=== PATIENT | male | born 1950 | race Caucasian/White ===

== ENCOUNTER 2017-03-07 13:04 | Emergency (ER) | payer MEDICARE, OTHER ==
[~2017-03-07] VITALS: Ht 167.6 cm; Wt 138.2 kg
[~2017-03-07 13:04] MED LIST: B-121000 MCG PO; FLOMAX 0.40.4 MG/CAP PO; FOLIC ACID 40400 MCG PO; GLUCOPHAGE500 MG/TAB PO; KLONOPIN 1MG1 MG PO; LASIX 20MG TABL20 MG PO; MULTI VITAMINS1 TAB PO; NEURONTIN300 MG/CAP PO; NORCO 325 MG-7.1 TAB; PRINZIDE 12.5 M1 TA1 PO; ROXICODONE 55 MG/TAB; STOOL SOFTENER100 M2 PO; VITAMINC1000TA PO; ZOCOR 40MG40 MG PO; ZYLOPRIM 100MG100 MG PO
[2017-03-07 13:11] VITALS: BP 144/73; PULSE 75; TEMP 98.6
[2017-03-07 13:46] LABS: BASO % 0.4 % (0.0-2.0); EOS # 0.2 (0.0-0.7); EOS % 2.6 % (0-4.0); GRAN # 4.9 (1.4-6.5); GRAN % 68.1 % (42.2-75.2); LYMPH # 1.4 (1.2-3.4); LYMPH % 19.8 % (20.0-51.0); MEAN CELL VOLUME 103 fl (80.0-100.0); MEAN CORPUSCULAR HGB CONC 33 g/dl (33.0-37.0); MEAN PLATELET VOLUME 8.6 fl (7.4-10.4); MONO # 0.6 (0.1-0.6); MONO % 7.7 % (1.7-9.3); PLATELET COUNT 311 K/mm3 (130-400); RED BLOOD COUNT 2.35 M/mm3 (4.20-5.60); REDCELL DISTRIBUTION WIDTH-CV 13.2 % (11.5-14.5); WHITE BLOOD COUNT 7.2 K/mm3 (4.8-10.8)
[2017-03-07 13:49] LABS: HEMATOCRIT 24.3 % (42.0-52.0); MEAN CORPUSCULAR HEMOGLOBIN 34 pg (27.0-31.0)
[2017-03-07 14:05] LABS: CALCIUM 9.1 mg/dL (8.4-10.2); CREATININE, serum 1.5 mg/dL (0.66-1.25); POTASSIUM 4.6 mmol/L (3.4-5.0)
== END 2017-03-07 15:15 | disposition home or self-care (01) ==
LOC: COL.ER 13:04
PROVIDERS: Emergency Medicine
DX: M96.842 Postprocedural seroma of a musculoskeletal structure following a musculoskeletal system procedure (principal); G89.18 Other acute postprocedural pain; D64.9 Anemia, unspecified; R60.0 Localized edema; E11.9 Type 2 diabetes mellitus without complications; Z79.84 Long term (current) use of oral hypoglycemic drugs

== ENCOUNTER 2017-03-12 12:14 | Day surgery (SDC) | payer MEDICARE, OTHER ==
[2017-03-12] VITALS (10 sets, daily range): BP systolic 100–126; BP diastolic 50–580; PULSE 72–95; TEMP 97.3–98.7
[~2017-03-12] VITALS: Ht 170.2 cm; Wt 136.3 kg
[2017-03-12] MEDS ORDERED: ULTRAM 50MG TAB50 MG PO (13:08)
[2017-03-13 01:45] VITALS: BP 106/58; PULSE 81; TEMP 98.6
[2017-03-13 05:39] VITALS: BP 120/50; PULSE 81; TEMP 98.5
[2017-03-13] MEDS ORDERED: CEPHALEXIN500 M1 PO (09:17)
[2017-03-13] MEDS ORDERED: NORCO 325 MG-7.1 TAB PO (09:17)
[2017-03-13 10:03] VITALS: BP 94/58; PULSE 93; TEMP 98.3
[2017-03-13 13:19] VITALS: BP 128/59; PULSE 92; TEMP 98.3
== END 2017-03-13 15:30 | disposition home or self-care (01) ==
LOC: SDCO 12:14 → SURG 17:20 → SDCO 03-13 15:30
DX: M96.840 Postprocedural hematoma of a musculoskeletal structure following a musculoskeletal system procedure (principal); E11.22 Type 2 diabetes mellitus with diabetic chronic kidney disease; E11.40 Type 2 diabetes mellitus with diabetic neuropathy, unspecified; N18.9 Chronic kidney disease, unspecified; I12.9 Hypertensive chronic kidney disease with stage 1 through stage 4 chronic kidney disease, or unspecified chronic kidney disease; M10.9 Gout, unspecified; M48.00 Spinal stenosis, site unspecified; M19.90 Unspecified osteoarthritis, unspecified site; Z96.612 Presence of left artificial shoulder joint; Z96.611 Presence of right artificial shoulder joint; Z96.652 Presence of left artificial knee joint; G47.33 Obstructive sleep apnea (adult) (pediatric); N40.0 Benign prostatic hyperplasia without lower urinary tract symptoms; Z68.42 Body mass index [BMI] 45.0-49.9, adult; Z80.9 Family history of malignant neoplasm, unspecified; Z82.49 Family history of ischemic heart disease and other diseases of the circulatory system; R20.9 Unspecified disturbances of skin sensation; D64.9 Anemia, unspecified; R60.0 Localized edema
CPT/HCPCS: OP; J0690; J1170; J1650; J2405; J2704; J2765; J3010; J7030

== ENCOUNTER 2017-08-25 13:02 | Observation (INO) | payer MEDICARE, OTHER ==
[~2017-08-25] VITALS: Ht 167.6 cm; Wt 142.7 kg
[~2017-08-25 13:02] MED LIST changes: +CEPHALEXIN500 M1 PO; +NORCO 325 MG-7.1 TAB PO; +ULTRAM 50MG TAB50 MG PO
[2017-08-25 16:50] LABS: BASO % 0.2 % (0.0-2.0); EOS % 0.1 % (0-4.0); GRAN # 10.7 (1.4-6.5); GRAN % 81.6 % (42.2-75.2); HEMATOCRIT 37.2 % (42.0-52.0); HEMOGLOBIN 12.7 g/dl (13.5-18.0); LYMPH # 1.4 (1.2-3.4); LYMPH % 10.6 % (20.0-51.0); MEAN CELL VOLUME 101 fl (80.0-100.0); MEAN CORPUSCULAR HEMOGLOBIN 34 pg (27.0-31.0); MEAN CORPUSCULAR HGB CONC 34 g/dl (33.0-37.0); MEAN PLATELET VOLUME 9.1 fl (7.4-10.4); MONO # 0.9 (0.1-0.6); MONO % 7.1 % (1.7-9.3); PLATELET COUNT 245 K/mm3 (130-400); RED BLOOD COUNT 3.69 M/mm3 (4.20-5.60); REDCELL DISTRIBUTION WIDTH-CV 13.1 % (11.5-14.5)
[2017-08-25 16:59] LABS: ALBUMIN 4.1 gm/dL (3.5-5.0); BILIRUBIN,TOTAL 1.3 mg/dL (0.0-1.0); CALCIUM 9.7 mg/dL (8.4-10.2); CREATININE, serum 1.48 mg/dL (0.66-1.25); POTASSIUM 4.3 mmol/L (3.4-5.0); TOTAL PROTEIN 7.2 gm/dL (6.4-8.2)
[2017-08-25 17:03] LABS: COLLECTION METHOD CLEAN CATCH
[2017-08-25 17:09] LABS: MUCOUS Present /lpf; PH 5 (5-8); SQUAMOUS EPITHELIAL None Seen /hpf; URINE APPEARANCE Clear; URINE BACTERIA Rare /hpf; URINE BILIRUBIN Negative (NEGATIVE); URINE BLOOD 3+ (NEGATIVE); URINE COLOR Yellow; URINE GLUCOSE Negative (NEGATIVE); URINE KETONE Negative (NEGATIVE); URINE LEUKOCYTE ESTERASE Negative (NEGATIVE); URINE NITRATE Negative (NEGATIVE); URINE PROTEIN(semi-quant) 2+ (NEGATIVE); URINE UROBILINOGEN Negative (NEGATIVE)
[2017-08-25 18:38] LABS: INFLUENZA A NEGATIVE; INFLUENZA B NEGATIVE
[2017-08-25 20:54] LABS: ALBUMIN 3.5 gm/dL (3.5-5.0); BILIRUBIN,TOTAL 0.9 mg/dL (0.0-1.0); CREATININE, serum 1.33 mg/dL (0.66-1.25); POTASSIUM 3.9 mmol/L (3.4-5.0); TOTAL PROTEIN 6.4 gm/dL (6.4-8.2)
[2017-08-25 21:07] VITALS: BP 155/69; PULSE 102; TEMP 98.5
[2017-08-25] MEDS ORDERED: XARELTO10 MG PO (23:15)
[2017-08-26 02:07] VITALS: BP 148/71; PULSE 104; TEMP 98.5
[2017-08-26 06:03] VITALS: BP 137/71; PULSE 87; TEMP 98.2
[2017-08-26 07:43] LABS: BASO # 0.1 (0.0-0.2); BASO % 0.5 % (0.0-2.0); EOS # 0.1 (0.0-0.7); EOS % 1.1 % (0-4.0); GRAN # 6.9 (1.4-6.5); GRAN % 74.2 % (42.2-75.2); LYMPH # 1.4 (1.2-3.4); LYMPH % 15.4 % (20.0-51.0); MEAN CELL VOLUME 103 fl (80.0-100.0); MEAN CORPUSCULAR HGB CONC 33 g/dl (33.0-37.0); MEAN PLATELET VOLUME 9.5 fl (7.4-10.4); MONO # 0.8 (0.1-0.6); MONO % 8.6 % (1.7-9.3); PLATELET COUNT 228 K/mm3 (130-400); RED BLOOD COUNT 3.13 M/mm3 (4.20-5.60); REDCELL DISTRIBUTION WIDTH-CV 13.3 % (11.5-14.5)
[2017-08-26 07:47] LABS: HEMATOCRIT 32.3 % (42.0-52.0); HEMOGLOBIN 10.6 g/dl (13.5-18.0); MEAN CORPUSCULAR HEMOGLOBIN 34 pg (27.0-31.0)
[2017-08-26 09:43] VITALS: BP 145/83; PULSE 72; TEMP 97.9
[2017-08-26] MEDS ORDERED: LEVOXYL0.05 MG PO (12:05)
[2017-08-26 13:38] VITALS: BP 145/65; PULSE 82; TEMP 98.1
[2017-08-26 17:56] VITALS: BP 152/77; PULSE 94; TEMP 100
[2017-08-26] MEDS ORDERED: MULTI VITAMINS1 TAB PO (19:23)
[2017-08-26] MEDS ORDERED: ROXICODONE 55 MG/TAB PO (19:25)
[2017-08-26] MEDS ORDERED: NOVOLOG 100U100 U/M1 SQ (19:31)
== END 2017-08-26 18:20 ==
LOC: COL.ER 13:02 → SURG 18:00
PROVIDERS: Family Medicine; Internal Medicine
DX: R53.1 Weakness (principal); R39.198 Other difficulties with micturition; I10 Essential (primary) hypertension; E03.9 Hypothyroidism, unspecified; D53.9 Nutritional anemia, unspecified; E11.9 Type 2 diabetes mellitus without complications; E78.5 Hyperlipidemia, unspecified; E86.0 Dehydration; N30.90 Cystitis, unspecified without hematuria; Z96.651 Presence of right artificial knee joint; Z79.4 Long term (current) use of insulin; Z79.01 Long term (current) use of anticoagulants; Z82.49 Family history of ischemic heart disease and other diseases of the circulatory system; Z82.61 Family history of arthritis
CPT/HCPCS: G0378; G8978-GP; G8979-GP; G8987-GO; G8988-GO; J0696; J1650; J1815; J2270; J7030

== ENCOUNTER 2017-08-26 16:19 | Inpatient (IN) | payer MEDICARE, OTHER ==
[~2017-08-26] VITALS: Ht 165.1 cm; Wt 132.7 kg
[~2017-08-26 16:19] MED LIST changes: +LEVOXYL0.05 MG PO; +XARELTO10 MG PO
[2017-08-26 19:20] VITALS: BP 144/72; PULSE 94; TEMP 98.5
[2017-08-26] MEDS ORDERED: MULTI VITAMINS1 TAB PO (19:23)
[2017-08-26] MEDS ORDERED: ROXICODONE 55 MG/TAB PO (19:25)
[2017-08-26] MEDS ORDERED: NOVOLOG 100U100 U/M1 SQ (19:31)
[2017-08-27 03:45] VITALS: BP 135/73; PULSE 76; TEMP 98.4
[2017-08-27 15:39] VITALS: BP 120/63; PULSE 103; TEMP 98.5
[2017-08-28 05:46] VITALS: BP 115/65; PULSE 87; TEMP 98.4
[2017-08-28 16:44] VITALS: BP 112/64; PULSE 90; TEMP 97.9
[2017-08-29 06:00] VITALS: BP 104/65; PULSE 96; TEMP 98.1
[2017-08-29 15:05] VITALS: BP 118/62; PULSE 95; TEMP 98.2
[2017-08-30 05:20] VITALS: BP 113/84; PULSE 90; TEMP 98.2
[2017-08-30 06:53] LABS: BASO % 0.4 % (0.0-2.0); EOS # 0.4 (0.0-0.7); EOS % 4.8 % (0-4.0); GRAN % 67.1 % (42.2-75.2); LYMPH # 1.7 (1.2-3.4); LYMPH % 19.1 % (20.0-51.0); MEAN CELL VOLUME 103 fl (80.0-100.0); MEAN CORPUSCULAR HGB CONC 33 g/dl (33.0-37.0); MEAN PLATELET VOLUME 9.2 fl (7.4-10.4); MONO # 0.7 (0.1-0.6); MONO % 7.6 % (1.7-9.3); PLATELET COUNT 343 K/mm3 (130-400); RED BLOOD COUNT 3.18 M/mm3 (4.20-5.60); REDCELL DISTRIBUTION WIDTH-CV 12.8 % (11.5-14.5)
[2017-08-30 06:54] LABS: HEMATOCRIT 32.8 % (42.0-52.0); HEMOGLOBIN 10.7 g/dl (13.5-18.0); MEAN CORPUSCULAR HEMOGLOBIN 34 pg (27.0-31.0)
[2017-08-30 07:01] LABS: CALCIUM 9.8 mg/dL (8.4-10.2); CREATININE, serum 1.35 mg/dL (0.66-1.25); MAGNESIUM 1.6 mg/dL (1.6-2.3); POTASSIUM 4.1 mmol/L (3.4-5.0)
[2017-08-30 16:31] VITALS: BP 111/64; PULSE 77; TEMP 99.1
[2017-08-31 06:35] VITALS: BP 117/59; PULSE 80; TEMP 97.4
[2017-08-31 16:40] VITALS: BP 118/55; PULSE 87; TEMP 98.8
[2017-08-31 17:54] VITALS: BP 117/61; PULSE 71; TEMP 97.4
[2017-09-01 06:13] VITALS: BP 106/52; PULSE 65; TEMP 97.8
[2017-09-01 17:45] VITALS: BP 108/59; PULSE 70; TEMP 98.6
[2017-09-02 03:59] VITALS: BP 117/59; PULSE 77; TEMP 98.3
[2017-09-02 15:21] VITALS: BP 124/73; PULSE 99; TEMP 98
[2017-09-03 05:49] VITALS: BP 105/62; PULSE 67; TEMP 97.6
[2017-09-03 15:59] VITALS: BP 114/48; PULSE 64; TEMP 98.7
[2017-09-04 06:00] VITALS: BP 116/49; PULSE 71; TEMP 96.5
[2017-09-04 17:09] VITALS: BP 109/42; PULSE 87
[2017-09-05 04:09] VITALS: BP 104/53; PULSE 75; TEMP 97
[2017-09-05 16:04] VITALS: BP 115/59; PULSE 95; TEMP 98
[2017-09-06 05:47] VITALS: BP 114/54; PULSE 63; TEMP 97.6
[2017-09-06 07:01] LABS: CALCIUM 9.7 mg/dL (8.4-10.2); CREATININE, serum 1.67 mg/dL (0.66-1.25); MAGNESIUM 2.3 mg/dL (1.6-2.3); POTASSIUM 4.6 mmol/L (3.4-5.0)
[2017-09-06 16:16] VITALS: BP 113/60; PULSE 87; TEMP 97.8
[2017-09-07 06:18] VITALS: BP 105/66; PULSE 77; TEMP 96.6
[2017-09-07 07:13] LABS: CALCIUM 9.3 mg/dL (8.4-10.2); CREATININE, serum 1.82 mg/dL (0.66-1.25); POTASSIUM 4.6 mmol/L (3.4-5.0)
[2017-09-07] MEDS ORDERED: TYLENOL 325MG325 MG PO (08:32)
[2017-09-07] MEDS ORDERED: ZYLOPRIM 100MG100 MG PO (08:34)
[2017-09-07] MEDS ORDERED: NYSTATIN POWDER30 GM TOP (08:35)
[2017-09-07] MEDS ORDERED: PREDNISONE20 MG PO (08:36)
[2017-09-07] MEDS ORDERED: GLUCOTROL 5M5 MG/TAB PO (08:41)
[2017-09-07] MEDS ORDERED: ULTRAM 50MG TAB50 MG PO (08:42)
[2017-09-07] MEDS ORDERED: NORCO 325 MG-7.1 TAB PO (08:42)
== END 2017-09-07 16:07 | disposition home or self-care (01) | DRG 560 ==
PROVIDERS: Internal Medicine
DX: Z47.1 Aftercare following joint replacement surgery (principal); N17.9 Acute kidney failure, unspecified; Z68.42 Body mass index [BMI] 45.0-49.9, adult; M17.11 Unilateral primary osteoarthritis, right knee; Z79.4 Long term (current) use of insulin; E66.01 Morbid (severe) obesity due to excess calories; R33.9 Retention of urine, unspecified; I12.9 Hypertensive chronic kidney disease with stage 1 through stage 4 chronic kidney disease, or unspecified chronic kidney disease; E11.22 Type 2 diabetes mellitus with diabetic chronic kidney disease; N18.9 Chronic kidney disease, unspecified
CPT/HCPCS: 99222-AI; 99232-AI; 99239; G0378; G8978-GP; G8979-GP; G8987-GO; G8988-GO; J0696; J1650; J1815; J2270; J7030; J7512

== ENCOUNTER 2018-03-30 11:20 | Day surgery (SDC) | payer MEDICARE, OTHER ==
[2018-03-30] VITALS (9 sets, daily range): BP systolic 140–148; BP diastolic 72–90; PULSE 81–96; TEMP 98–98.2
[~2018-03-30] VITALS: Ht 167.6 cm; Wt 136.5 kg
[~2018-03-30 11:20] MED LIST changes: +GLUCOTROL 5M5 MG/TAB PO; +NOVOLOG 100U100 U/M1 SQ; +NYSTATIN POWDER30 GM TOP; +PREDNISONE20 MG PO; +ROXICODONE 55 MG/TAB PO; +TYLENOL 325MG325 MG PO
[2018-03-30] MEDS ORDERED: TYLENOL 500MG500 MG PO (12:58)
[2018-03-31 00:23] VITALS: BP 163/87; PULSE 99; TEMP 98.8
[2018-03-31 09:07] VITALS: BP 121/56; PULSE 83; TEMP 98.5
[2018-03-31 12:49] VITALS: BP 115/65; PULSE 65; TEMP 98
[2018-03-31 16:01] VITALS: BP 135/65; PULSE 61; TEMP 98.2
== END 2018-03-31 21:00 | disposition home or self-care (01) ==
LOC: SDCO 11:20 → INPTSU 17:21 → SURG 18:00 → INPTSU 18:00 → SURG 03-31 21:00 → SDCO 03-31 21:00
DX: N40.1 Benign prostatic hyperplasia with lower urinary tract symptoms (principal); R35.0 Frequency of micturition; R35.1 Nocturia; D53.9 Nutritional anemia, unspecified; M10.9 Gout, unspecified; E78.5 Hyperlipidemia, unspecified; I10 Essential (primary) hypertension; E11.42 Type 2 diabetes mellitus with diabetic polyneuropathy; G47.33 Obstructive sleep apnea (adult) (pediatric); F41.9 Anxiety disorder, unspecified; G89.29 Other chronic pain; E66.01 Morbid (severe) obesity due to excess calories; Z68.42 Body mass index [BMI] 45.0-49.9, adult; Z79.82 Long term (current) use of aspirin; Z79.84 Long term (current) use of oral hypoglycemic drugs; Z96.0 Presence of urogenital implants; Z96.652 Presence of left artificial knee joint; Z96.612 Presence of left artificial shoulder joint; Z96.611 Presence of right artificial shoulder joint; Z80.1 Family history of malignant neoplasm of trachea, bronchus and lung; Z80.8 Family history of malignant neoplasm of other organs or systems; Z82.3 Family history of stroke
CPT/HCPCS: J1100; J1170; J2270; J2405; J2704; J3010; J7030

== ENCOUNTER 2018-06-21 13:22 | Inpatient (IN) | payer MEDICARE, OTHER ==
[~2018-06-21] VITALS: Ht 167.6 cm; Wt 139.1 kg
[~2018-06-21 13:22] MED LIST changes: +TYLENOL 500MG500 MG PO
[2018-06-21 13:51] LABS: BASO # 0.1 (0.0-0.2); BASO % 0.8 % (0.0-2.0); EOS # 0.1 (0.0-0.7); EOS % 1.4 % (0-4.0); GRAN # 6.8 (1.4-6.5); GRAN % 79.6 % (42.2-75.2); HEMOGLOBIN 14.5 g/dl (13.5-18.0); LYMPH % 11.2 % (20.0-51.0); MEAN CELL VOLUME 102 fl (80.0-100.0); MEAN CORPUSCULAR HEMOGLOBIN 34 pg (27.0-31.0); MEAN CORPUSCULAR HGB CONC 34 g/dl (33.0-37.0); MEAN PLATELET VOLUME 9.3 fl (7.4-10.4); MONO # 0.6 (0.1-0.6); MONO % 6.8 % (1.7-9.3); PLATELET COUNT 273 K/mm3 (130-400); RED BLOOD COUNT 4.23 M/mm3 (4.20-5.60); REDCELL DISTRIBUTION WIDTH-CV 12.8 % (11.5-14.5)
[2018-06-21 14:00] LABS: INR 0.9 (0.8-3.0); PROTHROMBIN TIME 10.7 SECONDS (9.7-12.8)
[2018-06-21 14:25] LABS: ALBUMIN 3.9 gm/dL (3.5-5.0); BILIRUBIN,TOTAL 0.8 mg/dL (0.0-1.0); CALCIUM 9.8 mg/dL (8.4-10.2); CREATININE, serum 1.13 mg/dL (0.66-1.25); POTASSIUM 4.6 mmol/L (3.4-5.0); TOTAL PROTEIN 6.6 gm/dL (6.4-8.2)
[2018-06-21] MEDS ORDERED: ZYLOPRIM 100MG100 MG PO (14:31)
[2018-06-21] MEDS ORDERED: NEURONTIN300 MG/CAP PO (14:32)
[2018-06-21] MEDS ORDERED: LASIX 20MG TABL20 MG PO (14:32)
[2018-06-21] MEDS ORDERED: B-121000 MCG PO (14:33)
[2018-06-21] MEDS ORDERED: FOLIC ACID0.4 MG PO (14:33)
[2018-06-21] MEDS ORDERED: FLOMAX 0.40.4 MG/CAP PO (14:34)
[2018-06-21] MEDS ORDERED: STOOL SOFTENER100 M2 PO (14:34)
[2018-06-21] MEDS ORDERED: ZOCOR 40MG40 MG PO (14:34)
[2018-06-21] MEDS ORDERED: SYNTHROID0.05 MG/TA PO (14:35)
[2018-06-21] MEDS ORDERED: KLONOPIN 1MG1 MG PO (14:35)
[2018-06-21 14:37] LABS: TROPONIN-I 0.016 ng/mL (0.000-0.034)
[2018-06-21 16:19] VITALS: BP 129/77; PULSE 99; TEMP 98.3
[2018-06-21 20:55] VITALS: BP 114/69; PULSE 95; TEMP 98.6
[2018-06-22] VITALS (10 sets, daily range): BP systolic 99–138; BP diastolic 52–72; PULSE 88–106; TEMP 97.1–98
[2018-06-22 06:16] LABS: BASO # 0.1 (0.0-0.2); BASO % 0.6 % (0.0-2.0); EOS # 0.2 (0.0-0.7); EOS % 2.2 % (0-4.0); GRAN # 5.4 (1.4-6.5); GRAN % 70.5 % (42.2-75.2); HEMATOCRIT 43.1 % (42.0-52.0); HEMOGLOBIN 14.1 g/dl (13.5-18.0); LYMPH # 1.4 (1.2-3.4); LYMPH % 17.7 % (20.0-51.0); MEAN CELL VOLUME 104 fl (80.0-100.0); MEAN CORPUSCULAR HEMOGLOBIN 34 pg (27.0-31.0); MEAN CORPUSCULAR HGB CONC 33 g/dl (33.0-37.0); MEAN PLATELET VOLUME 9.3 fl (7.4-10.4); MONO # 0.7 (0.1-0.6); MONO % 8.5 % (1.7-9.3); PLATELET COUNT 260 K/mm3 (130-400); RED BLOOD COUNT 4.13 M/mm3 (4.20-5.60)
[2018-06-22 06:30] LABS: CALCIUM 9.3 mg/dL (8.4-10.2); CHOLESTEROL RISK RATIO 3.3; CREATININE, serum 1.42 mg/dL (0.66-1.25); POTASSIUM 4.8 mmol/L (3.4-5.0)
[2018-06-22 06:37] LABS: TROPONIN-I 0.018 ng/mL (0.000-0.034)
[2018-06-23] VITALS (16 sets, daily range): BP systolic 92–147; BP diastolic 49–74; PULSE 65–106; TEMP 97.6–98.9
[2018-06-23 06:14] LABS: BASO # 0.1 (0.0-0.2); BASO % 0.7 % (0.0-2.0); EOS # 0.2 (0.0-0.7); GRAN # 5.3 (1.4-6.5); GRAN % 68.4 % (42.2-75.2); HEMATOCRIT 39.5 % (42.0-52.0); HEMOGLOBIN 12.8 g/dl (13.5-18.0); LYMPH # 1.6 (1.2-3.4); LYMPH % 20.3 % (20.0-51.0); MEAN CELL VOLUME 106 fl (80.0-100.0); MEAN CORPUSCULAR HEMOGLOBIN 34 pg (27.0-31.0); MEAN CORPUSCULAR HGB CONC 32 g/dl (33.0-37.0); MEAN PLATELET VOLUME 9.2 fl (7.4-10.4); MONO # 0.6 (0.1-0.6); MONO % 8.1 % (1.7-9.3); PLATELET COUNT 248 K/mm3 (130-400); RED BLOOD COUNT 3.74 M/mm3 (4.20-5.60); REDCELL DISTRIBUTION WIDTH-CV 13.3 % (11.5-14.5)
[2018-06-23 06:36] LABS: CALCIUM 8.9 mg/dL (8.4-10.2); CREATININE, serum 1.61 mg/dL (0.66-1.25); POTASSIUM 4.5 mmol/L (3.4-5.0)
[2018-06-24 00:15] VITALS: BP 111/51; PULSE 79
[2018-06-24 02:00] VITALS: PULSE 76
[2018-06-24 05:08] VITALS: BP 107/48; PULSE 88
[2018-06-24 07:09] LABS: BASO # 0.1 (0.0-0.2); BASO % 0.7 % (0.0-2.0); EOS # 0.2 (0.0-0.7); EOS % 2.6 % (0-4.0); GRAN # 5.4 (1.4-6.5); GRAN % 71.3 % (42.2-75.2); HEMATOCRIT 41.6 % (42.0-52.0); HEMOGLOBIN 13.7 g/dl (13.5-18.0); LYMPH # 1.4 (1.2-3.4); LYMPH % 18.4 % (20.0-51.0); MEAN CELL VOLUME 106 fl (80.0-100.0); MEAN CORPUSCULAR HEMOGLOBIN 35 pg (27.0-31.0); MEAN CORPUSCULAR HGB CONC 33 g/dl (33.0-37.0); MEAN PLATELET VOLUME 9.3 fl (7.4-10.4); MONO # 0.5 (0.1-0.6); MONO % 6.7 % (1.7-9.3); PLATELET COUNT 262 K/mm3 (130-400); RED BLOOD COUNT 3.94 M/mm3 (4.20-5.60); REDCELL DISTRIBUTION WIDTH-CV 13.2 % (11.5-14.5)
[2018-06-24 07:18] LABS: CALCIUM 9.3 mg/dL (8.4-10.2); CREATININE, serum 1.41 mg/dL (0.66-1.25); POTASSIUM 4.8 mmol/L (3.4-5.0)
[2018-06-24 07:48] VITALS: BP 131/54; PULSE 94; TEMP 98.7
[2018-06-24 08:49] VITALS: BP 124/54; PULSE 93; TEMP 98.3
[2018-06-24 10:11] LABS: ARTERIAL BLD GAS O2 SATURATION 89.8 % (92-100); ARTERIAL BLD GAS TCO2 CT 33.9; ARTERIAL BLOOD GAS BASE EXCESS 4.6 (-2-2); ARTERIAL BLOOD GAS PCO2 60.7 mmHg (35-45); ARTERIAL BLOOD GAS PO2 57.8 mmHg (80-100); ARTERIAL BLOOD GAS pH 7.34 (7.35-7.45)
[2018-06-24 12:16] VITALS: BP 127/61; PULSE 62; TEMP 98.3
[2018-06-24] MEDS ORDERED: TOPROL XL 50MG50 MG PO (14:33)
[2018-06-24] MEDS ORDERED: ASPIRIN E.C. 8181 MG PO (14:34)
== END 2018-06-24 17:27 | disposition home or self-care (01) | DRG 189 ==
LOC: COL.ER 13:22 → MEDICAL 14:47
PROVIDERS: Emergency Medicine; Internal Medicine Pulmonary Disease; Physician Assistant
DX: J96.12 Chronic respiratory failure with hypercapnia (principal); E66.2 Morbid (severe) obesity with alveolar hypoventilation; Z68.42 Body mass index [BMI] 45.0-49.9, adult; I10 Essential (primary) hypertension; M1A.9XX0 Chronic gout, unspecified, without tophus (tophi); N40.0 Benign prostatic hyperplasia without lower urinary tract symptoms; E78.5 Hyperlipidemia, unspecified; F41.9 Anxiety disorder, unspecified; E11.40 Type 2 diabetes mellitus with diabetic neuropathy, unspecified; Z66 Do not resuscitate; R07.89 Other chest pain; R35.1 Nocturia; E03.9 Hypothyroidism, unspecified; Z96.652 Presence of left artificial knee joint; N28.9 Disorder of kidney and ureter, unspecified
CPT/HCPCS: 99232-AI; 99239; C1769; G0378; G8978-GP; G8979-GP; G8987-GO; G8988-GO; J1644; J1650; J1815; J2250; J2785; J3010; J7050; Q9967

== ENCOUNTER 2018-07-19 07:53 | Emergency (ER) | payer MEDICARE, OTHER ==
[~2018-07-19] VITALS: Ht 167.6 cm; Wt 140.0 kg
[~2018-07-19 07:53] MED LIST changes: +ASPIRIN E.C. 8181 MG PO; +FOLIC ACID0.4 MG PO; +SYNTHROID0.05 MG/TA PO; +TOPROL XL 50MG50 MG PO
[2018-07-19 08:38] LABS: BASO % 0.7 % (0.0-2.0); EOS # 0.1 (0.0-0.7); EOS % 0.8 % (0-4.0); GRAN # 4.6 (1.4-6.5); GRAN % 74.6 % (42.2-75.2); HEMOGLOBIN 12.3 g/dl (13.5-18.0); LYMPH # 0.9 (1.2-3.4); LYMPH % 15.2 % (20.0-51.0); MEAN CELL VOLUME 101 fl (80.0-100.0); MEAN CORPUSCULAR HEMOGLOBIN 34 pg (27.0-31.0); MEAN CORPUSCULAR HGB CONC 34 g/dl (33.0-37.0); MEAN PLATELET VOLUME 8.9 fl (7.4-10.4); MONO # 0.5 (0.1-0.6); MONO % 8.5 % (1.7-9.3); PLATELET COUNT 206 K/mm3 (130-400); REDCELL DISTRIBUTION WIDTH-CV 12.7 % (11.5-14.5)
[2018-07-19 08:39] LABS: HEMATOCRIT 36.5 % (42.0-52.0)
[2018-07-19] MEDS ORDERED: ULTRAM 50MG TAB50 MG PO (08:42)
[2018-07-19 08:50] LABS: ALBUMIN 3.9 gm/dL (3.5-5.0); CALCIUM 9.6 mg/dL (8.4-10.2); CREATININE, serum 1.29 mg/dL (0.66-1.25); POTASSIUM 4.2 mmol/L (3.4-5.0); TOTAL PROTEIN 6.8 gm/dL (6.4-8.2)
[2018-07-19] MEDS ORDERED: DOXYCYCLINE HY100 MG PO (09:44)
[2018-07-19] MEDS ORDERED: OMNICEF 300MG300 MG PO (09:44)
[2018-07-19 10:28] LABS: COLLECTION METHOD CLEAN CATCH
[2018-07-19 10:34] LABS: MUCOUS Present /lpf; PH 5 (5-8); SQUAMOUS EPITHELIAL None Seen /hpf; URINE APPEARANCE Hazy; URINE BACTERIA None Seen /hpf; URINE BILIRUBIN Negative (NEGATIVE); URINE BLOOD Negative (NEGATIVE); URINE COLOR Yellow; URINE GLUCOSE Negative (NEGATIVE); URINE KETONE Negative (NEGATIVE); URINE LEUKOCYTE ESTERASE 1+ (NEGATIVE); URINE NITRATE Negative (NEGATIVE); URINE PROTEIN(semi-quant) 2+ (NEGATIVE); URINE UROBILINOGEN Negative (NEGATIVE); URINE WBC >50 /hpf
[2018-07-19 11:53] VITALS: BP 137/80; PULSE 85; TEMP 97.8
== END 2018-07-19 11:53 | disposition home or self-care (01) ==
LOC: COL.ER 07:53
PROVIDERS: Emergency Medicine
DX: S86.812A Strain of other muscle(s) and tendon(s) at lower leg level, left leg, initial encounter (principal); N45.1 Epididymitis; Z79.82 Long term (current) use of aspirin; X50.0XXA Overexertion from strenuous movement or load, initial encounter
CPT/HCPCS: J0696; J2405; J7040

== ENCOUNTER → 2018-08-08 | Outpatient (CLI) | payer MEDICARE, OTHER ==
[~2018-08-08] MED LIST changes: +DOXYCYCLINE HY100 MG PO; +OMNICEF 300MG300 MG PO
== END ==
LOC: COL.RAD 08:28
DX: M25.551 Pain in right hip (principal)
CPT/HCPCS: J3301; Q9967